=== PATIENT | male | born 1970 | race African-American/Black ===

== ENCOUNTER 2022-06-13 09:20 | Emergency (ER) | payer OTHER ==
[~2022-06-13] VITALS: Ht 188 cm; Wt 131.5 kg
[2022-06-13] MEDS ORDERED: HYDRALAZINE HCL 20 MG/ML VIAL IV NR (09:31)
[2022-06-13 10:07] LABS: BASOPHILS # (AUTO) 0.1 (0.0-0.1); BASOPHILS % 1.2 % (0.0-1.0); EOSINOPHILS # (AUTO) 0.1 (0.0-0.4); EOSINOPHILS % 0.8 % (0.0-6.0); HEMATOCRIT 48.4 % (38.2-49.6); HEMOGLOBIN 15.6 g/dL (14.0-18.0); LYMPHOCYTES # (AUTO) 1.8 (1.0-3.2); LYMPHOCYTES % 21.2 % (18.0-39.1); MEAN CORPUSCULAR HEMOGLOBIN 32.8 pg (28-32); MEAN CORPUSCULAR HGB CONC 32.2 g/dL (31-35); MEAN CORPUSCULAR VOLUME 101.9 fL (81-99); MONOCYTES # (AUTO) 0.9 (0.2-0.8); MONOCYTES % 10.8 % (4.4-11.3); NEUTROPHILS # (AUTO) 5.5 (2.1-6.9); NEUTROPHILS % 65.8 % (38.7-80.0); PLATELET COUNT 205 x10e3/uL (140-360); RED BLOOD COUNT 4.75 x10e6/uL (4.3-5.7); RED CELL DISTRIBUTION WIDTH 12.1 % (11.7-14.4)
[2022-06-13 10:12] LABS: INR 1.16
[2022-06-13] MEDS ORDERED: IRBESARTAN300 MG PO ×2 (10:12→11:45)
[2022-06-13] MEDS ORDERED: HYDROCHLOROTHIA25 MG PO ×2 (10:12→11:45)
[2022-06-13 10:13] LABS: PARTIAL THROMBOPLASTIN TIME 41.1 seconds (23.8-35.5)
[2022-06-13] MEDS ORDERED: AMLODIPINE BESY10 MG PO ×2 (10:13→11:46)
[2022-06-13] MEDS ORDERED: METOPROLOL TART25 MG PO ×2 (10:13→11:45)
[2022-06-13 10:23] LABS: ALBUMIN 3.7 g/dL (3.5-5.0); ALBUMIN/GLOBULIN RATIO 0.9 (0.8-2.0); ANION GAP 15.1 mmol/L (8-16); CALCIUM 8.6 mg/dL (8.4-10.2); CREATININE, SERUM 0.78 mg/dL (0.72-1.25); POTASSIUM 4.1 mmol/L (3.5-5.1)
== END 2022-06-13 12:29 | disposition home or self-care (01) ==
LOC: ER 09:23
DX: R04.0 Epistaxis (principal); I10 Essential (primary) hypertension; R09.81 Nasal congestion
CPT/HCPCS: 36415; 80053; 85025; 85610; 85730; 99284; J0360